=== PATIENT | female | born 1940 | race Two or more races ===

== ENCOUNTER → 2017-11-22 | Emergency (ER) | payer OTHER ==
[~2017-11-22] VITALS: Ht 152.4 cm; Wt 68.0 kg
[~2017-11-22] MED LIST: AMARYL PO; AVAPRO150 MG; CIPRO500 MG; SYNTHROID75 MCG; TRAM
== END | disposition home or self-care (01) ==
LOC: ER 16:06
DX: N30.91 Cystitis, unspecified with hematuria (principal)

== ENCOUNTER 2018-03-29 11:47 | Outpatient (CLI) | payer OTHER | END 2018-03-29 12:16 | disposition home or self-care (01) | LOC: SONOGRAMA 11:47 | DX: N63.11 Unspecified lump in the right breast, upper outer quadrant (principal); N63.23 Unspecified lump in the left breast, lower outer quadrant; N60.11 Diffuse cystic mastopathy of right breast; N60.12 Diffuse cystic mastopathy of left breast ==

== ENCOUNTER 2018-07-12 12:06 | Emergency (ER) | payer OTHER ==
[~2018-07-12] VITALS: Ht 152.4 cm; Wt 65.3 kg
== END 2018-07-12 21:34 | disposition home or self-care (01) ==
LOC: ER 12:06
DX: J45.901 Unspecified asthma with (acute) exacerbation (principal); J11.1 Influenza due to unidentified influenza virus with other respiratory manifestations

== ENCOUNTER 2018-07-22 22:32 | Emergency (ER) | payer OTHER ==
[~2018-07-22] VITALS: Ht 152.4 cm; Wt 65.3 kg
[2018-07-23] MEDS ORDERED: METRONIDAZOLE500 MG PO (05:20)
[2018-07-23] MEDS ORDERED: CIPRO500 MG PO (05:20)
[2018-07-23] MEDS ORDERED: LEVSIN/SL0.125 MG PO (05:20)
[2018-07-23] MEDS ORDERED: CELEBREX100 MG PO (05:20)
[2018-07-23] MEDS ORDERED: INTESTINEX680 M1 PO (05:20)
[2018-07-23] MEDS ORDERED: PEPCID AC20 MG PO (05:20)
== END 2018-07-23 06:09 | disposition home or self-care (01) ==
LOC: ER 22:32
DX: K57.30 Diverticulosis of large intestine without perforation or abscess without bleeding (principal); R10.32 Left lower quadrant pain

== ENCOUNTER 2018-12-13 15:06 | Outpatient (CLI) | payer OTHER ==
[~2018-12-13 15:06] MED LIST changes: +CELEBREX100 MG PO; +CIPRO500 MG PO; +INTESTINEX680 M1 PO; +LEVSIN/SL0.125 MG PO; +METRONIDAZOLE500 MG PO; +PEPCID AC20 MG PO
== END 2018-12-13 15:08 | disposition home or self-care (01) ==
LOC: RAD 501 15:06
DX: J98.11 Atelectasis (principal); J45.31 Mild persistent asthma with (acute) exacerbation

== ENCOUNTER 2021-06-05 12:25 | Emergency (ER) | payer OTHER ==
[~2021-06-05] VITALS: Ht 152.4 cm; Wt 65.3 kg
[2021-06-05] MEDS ORDERED: ADULT LOW DOSE81 M1 (12:42)
[2021-06-05] MEDS ORDERED: AVALIDE 300-121 EACH (12:42)
[2021-06-05] MEDS ORDERED: PROTONIX20 MG (12:43)
[2021-06-05] MEDS ORDERED: ZETIA10 MG (12:43)
[2021-06-05] MEDS ORDERED: GLIMEPIRIDE4 MG (12:44)
== END 2021-06-05 19:52 | disposition home or self-care (01) ==
LOC: ER 12:25
DX: K57.30 Diverticulosis of large intestine without perforation or abscess without bleeding (principal); R10.32 Left lower quadrant pain

== ENCOUNTER 2022-04-25 09:08 | Outpatient (CLI) | payer OTHER ==
[~2022-04-25 09:08] MED LIST changes: +ADULT LOW DOSE81 M1; +AVALIDE 300-121 EACH; +GLIMEPIRIDE4 MG; +PROTONIX20 MG; +ZETIA10 MG
== END 2022-04-25 09:13 | disposition home or self-care (01) ==
LOC: RAD 09:08
PROVIDERS: ATTEND Internal Medicine Gastroenterology
DX: R10.13 Epigastric pain (principal); D17.79 Benign lipomatous neoplasm of other sites

== ENCOUNTER 2023-07-29 19:59 | Emergency (ER) | payer OTHER ==
[~2023-07-29] VITALS: Ht 152.4 cm; Wt 62.6 kg
[2023-07-29] MEDS ORDERED: CRESTOR20 MG PO (21:09)
[2023-07-30] MEDS ORDERED: LEVSIN/SL0.125 MG SL (06:34)
[2023-07-30] MEDS ORDERED: CIPRO500 MG PO (06:34)
== END 2023-07-30 06:46 ==
LOC: ER 19:59
PROVIDERS: General Practice
DX: K57.32 Diverticulitis of large intestine without perforation or abscess without bleeding (principal); Z88.6 Allergy status to analgesic agent; E11.9 Type 2 diabetes mellitus without complications; E03.9 Hypothyroidism, unspecified; I10 Essential (primary) hypertension
CPT/HCPCS: 36415; 96365; 96366; 96372; 99284; J0744; J1200; J1885; J3490; J7030; Q9965

== ENCOUNTER 2023-12-29 17:28 | Emergency (ER) | payer OTHER ==
[~2023-12-29] VITALS: Ht 157.5 cm; Wt 63.5 kg
[~2023-12-29 17:28] MED LIST changes: +CRESTOR20 MG PO; +LEVSIN/SL0.125 MG SL
[2023-12-29] MEDS ORDERED: SYNTHROID50 MCG PO (17:55)
[2023-12-29] MEDS ORDERED: GUAIFENESIN 200 MG/10 ML BLIST.PACK PO STA (18:28)
[2023-12-29] MEDS ORDERED: AZITHROMYCIN 500 MG TABLET PO STA (18:28)
[2023-12-29] MEDS ORDERED: KETOROLAC TROMETHAMINE 30 MG VIAL IM STA (18:29)
[2023-12-29 19:36] LABS: HEMATOCRIT 33.8 % (36.0-45.00); HEMOGLOBIN 11.5 g/dL (12.0-15.00); MEAN CELL VOLUME 93.1 fL (80.00-100.00); MEAN CORPUSCULAR HEMOGLOBIN 31.8 pg (27.00-32.0); MEAN CORPUSCULAR HGB CONC 34.1 g/dl (32.0-36.0); PLATELET COUNT 184 K/uL (150-450); RED BLOOD COUNT 3.63 M/uL (4.00-6.00); RED CELL DISTRIBUTION WIDTH 14.1 % (11.5-14.5)
== END 2023-12-29 20:46 | disposition home or self-care (01) ==
LOC: ER 17:28
PROVIDERS: General Practice
DX: U07.1 COVID-19 (principal); Z88.8 Allergy status to other drugs, medicaments and biological substances
CPT/HCPCS: 36415; 96372; 99283; J1885

== ENCOUNTER 2024-08-20 10:27 | Outpatient (CLI) | payer OTHER ==
[~2024-08-20 10:27] MED LIST changes: +SYNTHROID50 MCG PO
== END 2024-08-20 10:30 | disposition home or self-care (01) ==
LOC: SONOGRAMA 10:27
DX: N18.32 Chronic kidney disease, stage 3b (principal); I12.9 Hypertensive chronic kidney disease with stage 1 through stage 4 chronic kidney disease, or unspecified chronic kidney disease

== ENCOUNTER 2025-07-27 07:10 | Outpatient (CLI) | payer OTHER | END 2025-07-27 07:11 | disposition home or self-care (01) | LOC: NUCLEAR 07:10 | PROVIDERS: ATTEND Internal Medicine Cardiovascular Disease | DX: I20.89 Other forms of angina pectoris (principal) | CPT/HCPCS: 78452; 93017; A9500 ==